=== PATIENT | male | born 1995 | race Two or more races ===

== ENCOUNTER 2021-03-19 12:26 | Emergency (ER) | payer MEDICAID ==
[2021-03-19 13:37] LABS: RAPID STREP SCREEN Negative (Negative)
[2021-03-19] MEDS ORDERED: DEXAMETHASONE 10 MG/ML VIAL PO STA (14:18)
[2021-03-19] MEDS ORDERED: CHERRY SYRUP 10 ML UDC PO ONE (14:18)
--- NOTE | 2021-03-19 14:21 | ED Physician Documentation ---
PD HPI HEENT - Stated complaint Stated Complaint: SORE THROAT - Chief complaint Chief Complaint: Heent - History obtained from History obtained from: Patient - History of Present Illness Timing - onset: How many days ago (2) Timing - duration: Days (2) Timing - details: Gradual onset, Still present Location: Throat Improves: Medication Worsens: Swalllowing Associated symptoms: No: Fever, Congestion, Rhinorrhea, Trismus, Unable to swallow, Swollen nodes, Facial swelling, Headache, Cough Similar symptoms before: Diagnosis (tonsilitis) Recently seen: Not recently seen - Additional information Additional information: Previously well 25-year-old male has developed some pain with swallowing on the right side of his throat he is noted some swelling to the tissue the where he has had his tonsils taken out and he has not had fever cough. Review of Systems Constitutional: denies: Fever Eyes: denies: Decreased vision Ears: denies: Ear pain Nose: reports: Congestion. denies: Rhinorrhea / runny nose Throat: reports: Sore throat Cardiac: denies: Chest pain / pressure, Palpitations Respiratory: denies: Dyspnea, Cough GI: denies: Nausea, Vomiting : denies: Dysuria PD PAST MEDICAL HISTORY - Past Medical History Past Medical History: No - Past Surgical History Past Surgical History: Yes HEENT: Tonsil/Adenoidectomy - Present Medications Home Medications: Ambulatory Orders Medication Instructions Recorded Confirmed Amox/Clav 875/125 [Augmentin] 1 each PO Q12H #14 tablet 03/19/21 - Allergies Allergies/Adverse Reactions: Allergies Allergy/AdvReac Type Severity Reaction Status Date / Time No Known Drug Allergies Allergy Verified 03/19/21 12:38 - Social History Does the pt smoke?: No Smoking Status: Never smoker - Immunizations Immunizations are current?: Yes PD ED PE NORMAL - Vitals Vital signs reviewed: Yes (hypertensive mild ) - General General: Alert and oriented X 3, No acute distress, Well developed/nourished - HEENT HEENT: Atraumatic, PERRL, EOMI, Other (Left TM minimally inflamed right is clear. residual tonsil tissue on Right is inflamed. minimal exudate. ) - Neck Neck: Supple, no meningeal sign, No bony TTP - Cardiac Cardiac: RRR, No murmur - Respiratory Respiratory: No respiratory distress, Clear bilaterally - Abdomen Abdomen: Normal bowel sounds, Soft, Non tender, Non distended, No organomegaly - Back Back: No CVA TTP, No spinal TTP - Derm Derm: Normal color, Warm and dry, No rash - Extremities Extremities: No deformity, No edema - Neuro Neuro: Alert and oriented X 3, letter of credit clerk 2-12 intact, No motor deficit, No sensory deficit, Normal speech Eye Opening: Spontaneous Motor: Obeys Commands Verbal: Oriented GCS Score: 15 - Psych Psych: Normal mood, Normal affect Results - Vitals Vitals: Vital Signs - 24 hr 03/19/21 12:33 Temperature 36.5 C Heart Rate 58 L Respiratory 16 Rate Blood Pressure 123/95 H O2 Saturation 100 Oxygen O2 Source Room air - Labs Labs: Laboratory Tests 03/19/21 13:17 Group A Strep Rapid Negative PD MEDICAL DECISION MAKING - ED course Complexity details: reviewed results, re-evaluated patient, considered differential, d/w patient ED course: 25 y/o male with right tonsil swelling has negative rapid strep and he is administered decadron and we will give a short course of augmentin. Departure - Departure Disposition: 01 Home, Self Care Clinical Impression: Tonsillitis Condition: Stable Instructions: ED Tonsillitis Follow-Up: Your, doctor [Other] Prescriptions: Amox/Clav 875/125 [Augmentin] 1 each PO Q12H #14 tablet
[2021-03-19 14:46] VITALS: BP 129/60
== END 2021-03-19 14:45 | disposition home or self-care (01) ==
LOC: ED 12:26
DX: J03.90 Acute tonsillitis, unspecified (principal)
CPT/HCPCS: 87070; 87430; 99283; A9270

== ENCOUNTER 2021-03-29 12:10 | Emergency (ER) | payer MEDICAID ==
[2021-03-29 12:18] VITALS: BP 129/77
--- NOTE | 2021-03-29 13:35 | ED Physician Documentation ---
PD HPI HEENT - Stated complaint Stated Complaint: SWELLING IN THROAT AREA - Chief complaint Chief Complaint: Heent - History obtained from History obtained from: Patient - History of Present Illness Timing - onset: How many weeks ago (1) Timing - duration: Weeks (1) Timing - details: Gradual onset, Still present Location: Throat Worsens: Swalllowing Associated symptoms: No: Fever, Congestion, Facial swelling Similar symptoms before: Has not had sx before Recently seen: Emergency Dept (seen a week ago for this and Rx with amox and had single dose steroid in ER. Rapid strep neg and culture negative too. Pt states improved for 1-2 days then back again despite 1 week of oral abx.) Review of Systems Constitutional: denies: Fever, Chills Nose: denies: Rhinorrhea / runny nose, Congestion Throat: reports: Sore throat Respiratory: denies: Cough GI: denies: Nausea, Vomiting Skin: denies: Rash, Lesions PD PAST MEDICAL HISTORY - Past Medical History Cardiovascular: None Respiratory: None Endocrine/Autoimmune: None - Past Surgical History Past Surgical History: Yes HEENT: Tonsil/Adenoidectomy (as a child) - Present Medications Home Medications: Ambulatory Orders Medication Instructions Recorded Confirmed Amox/Clav 875/125 [Augmentin] 1 each PO Q12H #14 tablet 03/19/21 Cetirizine [ZyrTEC] 10 mg PO BID #15 tablet 03/29/21 dexAMETHasone [Decadron] 4 mg PO DAILY #5 tablet 03/29/21 - Allergies Allergies/Adverse Reactions: Allergies Allergy/AdvReac Type Severity Reaction Status Date / Time No Known Drug Allergies Allergy Verified 03/29/21 12:15 - Social History Does the pt smoke?: No Smoking Status: Never smoker - Immunizations Immunizations are current?: Yes PD ED PE NORMAL - Vitals Vital signs reviewed: Yes - General General: Alert and oriented X 3, No acute distress, Well developed/nourished - HEENT HEENT: Ears normal, Moist mucous membranes. No: Pharynx benign (there is some inflammed tissue right peritonsillar area that looks like small amount of tonsillar tissue. Presume hypertrophied residual from childhood tonsillectomy. No exudate. No ulcerations. ) - Neck Neck: Supple, no meningeal sign, No adenopathy - Cardiac Cardiac: RRR, No murmur - Respiratory Respiratory: Clear bilaterally - Derm Derm: Normal color, Warm and dry Results - Vitals Vitals: Oxygen O2 Source Room air PD MEDICAL DECISION MAKING - ED course Complexity details: reviewed old records, considered differential (throat pain and swelling with negative culture. Had improved for couple days after ER visit, and attributes it to the steroids as did not seem to sustain improvement with abx. ), d/w patient Departure - Departure Disposition: 01 Home, Self Care Clinical Impression: Pharyngitis Qualifiers: Pharyngitis/tonsillitis etiology: unspecified etiology Qualified Code(s): J02.9 - Acute pharyngitis, unspecified Condition: Stable Record reviewed to determine appropriate education?: Yes Follow-Up: [facility] [Provider Group] Prescriptions: dexAMETHasone [Decadron] 4 mg PO DAILY #5 tablet Cetirizine [ZyrTEC] 10 mg PO BID #15 tablet Comments: Your strep test and culture from last visit are negative. You seem to have improvement more from the steroid than the antibiotic so I presume this is more inflammatory. We can treated with cetirizine antihistamine and Decadron steroid over the next 5 to 7 days. Tylenol if needed for pains. Recheck if not improved well over the next several days to week. Follow-up with ear nose and throat or your primary care if recurrent/persistent symptoms despite the above treatment. Discharge Date/Time: 03/29/21 14:47
[2021-03-29] MEDS: ACETAMINOPHEN 325 MG TABLET PO STA (14:42)
[2021-03-29] MEDS: CETIRIZINE 10 MG TABLET PO STA (14:42)
[2021-03-29] MEDS: CHERRY SYRUP 10 ML UDC PO ONE (14:43)
[2021-03-29] MEDS: DEXAMETHASONE 10 MG/ML VIAL PO STA (14:43)
== END 2021-03-29 14:47 | disposition home or self-care (01) ==
LOC: ED 12:10
DX: J02.9 Acute pharyngitis, unspecified (principal)
CPT/HCPCS: 99282; 99283; A9270